=== PATIENT | female | born 1930 | race Caucasian/White ===

== ENCOUNTER 2018-07-01 05:47 | Day surgery (SDC) | payer MEDICARE, BC ==
[~2018-07-01 05:47] MED LIST: Lidocaine 1% 20 ML MDV INJECT ONE
[2018-07-01] MEDS ORDERED: Sodium Chloride 0.9% 1,000 ML IV SCH ×2 (06:30→08:00)
[2018-07-01] MEDS ORDERED: Metoprolol Succinate 50 MG Tab.ER PO ONE (06:58)
[2018-07-01] MEDS ORDERED: Lidocaine 1% 20 ML MDV INJECT ONE ×2 (07:00)
[2018-07-01] MEDS ORDERED: Zolpidem 5 MG Tab PO PRN (07:49)
[2018-07-01] MEDS ORDERED: hydrOXYzine HCl 100 MG/2 ML SDV IM PRN (07:49)
[2018-07-01] MEDS ORDERED: diphenhydrAMINE 50 MG/ML SDV IVPUSH PRN (07:49)
[2018-07-01] MEDS ORDERED: Benzocaine/Cetylpyridinium/Menthol Lozenge MUCMEM PRN (07:49)
[2018-07-01] MEDS ORDERED: Acetaminophen/HYDROcodone 325-10 MG Tab PO PRN (07:49)
[2018-07-01] MEDS ORDERED: Docusate Sodium 100 MG Cap PO PRN (07:49)
[2018-07-01] MEDS ORDERED: Bisacodyl 5 MG Tab PO PRN (07:49)
[2018-07-01] MEDS ORDERED: Ondansetron 4 MG/2 ML SDV IVPUSH PRN (07:49)
--- NOTE | 2018-07-01 08:39 | NM ---
RIGHT BREAST AND AXILLARY LYMPHOSCINTIGRAPHY Technique: 1.35 mCi of technetium 99m sulfur colloid were infused into the right periareolar subcuticular tissue. Sonographic images were obtained in the AP and lateral position. Findings: There is moderate uptake in the periareolar region. There is a small focus of activity in the right axilla consistent with a sentinel node. There is activity in the periumbilical region which is some focal contamination. Impression: Successful lymphoscintigraphy of the right breast and axilla with single sentinel node uptake in the axilla
[2018-07-01] MEDS ORDERED: Lidocaine 1% with EPINEPHrine 1:100,000 50 ML MDV ONE (08:43)
[2018-07-01] MEDS ORDERED: Bupivacaine 0.5% 50 ML MDV ONE (08:43)
--- NOTE | 2018-07-01 08:54 | US ---
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 The ultrasound localized the previously described lesion with the marker in place. Local anesthesia was applied to the skin and 16 is tissue towards the target lesion. A Kopan localization needle was passed through the described lesion. Acquire was then passed through the needle and needle was withdrawn leaving the require in place within the lesion. Patient was sent for two-view mammogram POST PROCEDURE TWO-VIEW MAMMOGRAM The Kopan localization wire was seen passing through the margin and just beyond the previously described the upper outer breast nodule with localization marker in place. IMPRESSION: Successful wire localization of the right breast nodule The patient was then sent to the OR in good condition
[2018-07-01] MEDS ORDERED: ceFAZolin 2 GM in Premix Bag 1 BAG IV ONE (09:30)
[2018-07-01] MEDS ORDERED: fentaNYL 100 MCG/2 ML SDV ONE (09:44)
[2018-07-01] MEDS ORDERED: Propofol 200 MG/20 ML SDV ONE (09:44)
[2018-07-01] MEDS ORDERED: Isosulfan Blue 5 ML SDV SUBCUT ONE (10:25)
[2018-07-01] MEDS ORDERED: Glycopyrrolate 0.2 MG/ML 5 ML MDV ONE (10:29)
--- NOTE | 2018-07-01 13:39 | MY ---
Surgical Specimen Breast CLINICAL HISTORY: Right breast nodule, lumpectomy FINDINGS: 2 views of the breast specimen were obtained. The the localization wire is in place. The the targeted right breast nodule is within the specimen centrally as well as a section of the localization wire and a biopsy marker Conclusion: Specimen contains the nodule of previous biopsy marker and the localization wire
--- NOTE | 2018-07-01 13:44 | PCM.CONS ---
H&P History of Present Illness - General Date of Service: 07/01/18 Admit Problem/Dx: Admission Diagnosis/Problem Admission Diagnosis/Problem Breast mass seen on mammogram Source of Information: Patient, Family, Provider, RN Notes Reviewed History Limitations: Reports: No Limitations - History of Present Illness Initial Comments - Free Text/Narative: Ms. Stovall is an 87-year-old woman who I been asked to see by Dr. Claros for assistance in management of hypertension. She underwent a right breast lumpectomy with lymph node dissection earlier today. She's been noted to have significant hypertension in the pre-and postoperative periods. Currently treated with metoprolol and lisinopril, in the is on a maximal dose of lisinopril. She otherwise feels well and tolerated the surgery without significant difficulty. - Related Data Allergies/Adverse Reactions: Allergies Allergy/AdvReac Type Severity Reaction Status Date / Time amlodipine Allergy Swelling Verified 06/24/18 10:21 oxybutynin [From Oxytrol] Allergy Headache Verified 06/24/18 10:21 pravastatin Allergy unknown Verified 06/24/18 10:21 sulfamethoxazole Allergy Hallucinati Verified 06/24/18 10:21 [From Bactrim] ons trimethoprim [From Bactrim] Allergy Hallucinati Verified 06/24/18 10:21 ons Home Medications: Home Meds Aspirin [Adult Low Dose Aspirin EC] 81 mg PO DAILY 01/31/13 [History] Furosemide [Lasix] 20 mg PO BID 01/31/13 [History] Gabapentin [Neurontin] 300 mg PO BID 01/31/13 [History] Metoprolol Succinate [Toprol Xl] 100 mg PO DAILY 01/31/13 [History] Rosuvastatin [Crestor] 10 mg PO DAILY 01/31/13 [History] metFORMIN HCl [Fortamet] 1,000 mg PO QPM 01/31/13 [History] Lisinopril 40 mg PO BID 06/26/14 [History] Gabapentin [Neurontin] 600 mg PO BEDTIME 02/14/18 [History] Insulin Detemir [Levemir Flextouch] 20 units SUBCUT DAILY 02/14/18 [History] Levothyroxine Sodium [Synthroid] 25 mcg PO DAILY 02/14/18 [History] metFORMIN [Glucophage] 500 mg PO QAM 02/14/18 [History] Ammonium Lactate [Lac-Hydrin 12% Crm] 1 gm TOP BID 06/24/18 [History] Coenzyme [id number] E [Co Q-10 with l-Carnitine Sftgl] 1 cap PO DAILY 06/24/18 [History] Past Medical History HEENT History: Reports: Cataract, Impaired Vision Other HEENT History: wears glasses Cardiovascular History: Reports: High Cholesterol, Hypertension, [place], Syncope Gastrointestinal History: Reports: None Genitourinary History: Reports: Urinary Incontinence Musculoskeletal History: Reports: Other (See Below) Other Musculoskeletal History: hip pain Neurological History: Reports: Neuropathy, Diabetic, Other (See Below) Other Neuro History: degenerative disc disease Endocrine/Metabolic History: Reports: Diabetes, Type II Oncologic (Cancer) History: Reports: Brain - Infectious Disease History Infectious Disease History: Reports: Chicken Pox, Influenza, Measles, Mumps, Rubella - Past Surgical History HEENT Surgical History: Reports: Adenoidectomy, Cataract Surgery, Tonsillectomy Cardiovascular Surgical History: Reports: None GI Surgical History: Reports: Appendectomy, Colonoscopy Female Surgical History: Reports: None Endocrine Surgical History: Reports: None Neurological Surgical History: Reports: None Musculoskeletal Surgical History: Reports: None, Hip Replacement Oncologic Surgical History: Reports: Biopsy of Breast Dermatological Surgical History: Reports: None Social & Family History - Family History Oncologic: Reports: Breast - Tobacco Use Smoking Status *Q: Never Smoker - Caffeine Use Caffeine Use: Reports: Coffee - Recreational Drug Use Recreational Drug Use: No H&P Review of Systems - Review of Systems: Review Of Systems: See Below Pulmonary: Reports: No Symptoms Cardiovascular: Reports: No Symptoms Gastrointestinal: Reports: No Symptoms Musculoskeletal: Reports: No Symptoms Exam - Exam Exam: See Below - Vital Signs Vital Signs: Last Vital Signs Temp 97.3 F 07/01/18 12:15 Pulse 47 L 07/01/18 12:30 Resp 18 07/01/18 12:30 BP 195/54 H 07/01/18 12:30 Pulse Ox 100 07/01/18 12:30 Weight: 137 lb - Exam Quality Assessment: DVT Prophylaxis General: Alert, Oriented, Cooperative, Mild Distress Neck: Supple, Trachea Midline, +2 Carotid Pulse wo Bruit Lungs: Clear to Auscultation, Normal Respiratory Effort Cardiovascular: Regular Rate, Regular Rhythm, Normal S1, Normal S2. No: Systolic Murmur, Diastolic Murmur GI/Abdominal Exam: Soft, Non-Tender, No Organomegaly, No Distention Extremities: Non-Tender, No Pedal Edema - Patient Data Lab Results Last 24 hrs: Laboratory Results - last 24 hr 07/01/18 Range/Units 06:30 Blood Type O POSITIVE Gel Antibody Screen Negative Consult PN Assessment/Plan Procedures: Procedures ASSAY OF TROPONIN QUANT (02/14/18) BREAST TOMOSYNTHESIS BI (06/11/18) BX BREAST 1ST LESION US IMAG (06/24/18) COMP SCREEN MAMMOGRAM ADD-ON (08/10/14) COMPLETE CBC W/AUTO DIFF WBC (02/14/18) COMPREHEN METABOLIC PANEL (02/14/18) CULTURE AEROBIC IDENTIFY (06/26/14) DX MAMMO INCL CAD UNI (06/24/18) ELECTROCARDIOGRAM TRACING (02/14/18) EMERGENCY DEPT VISIT (02/14/18) EMERGENCY DEPT VISIT (06/26/14) EMERGENCY DEPT VISIT (01/31/13) HOT OR COLD PACKS THERAPY (03/02/16) MANUAL THERAPY 1/> REGIONS (03/02/16) METABOLIC PANEL TOTAL CA (01/31/13) MICROBE SUSCEPTIBLE GISSEL (02/14/18) PT EVALUATION (03/02/16) ROUTINE VENIPUNCTURE (02/14/18) SCR MAMMO BI INCL CAD (06/11/18) THER/PROPH/DIAG INJ SC/IM (01/31/13) THER/PROPH/DIAG IV INF INIT (02/14/18) THERAPEUTIC EXERCISES (03/02/16) TTE W/DOPPLER COMPLETE (06/17/18) ULTRASOUND BREAST COMPLETE (06/17/18) ULTRASOUND BREAST LIMITED (06/13/17) URINALYSIS AUTO W/SCOPE (02/14/18) URINE BACTERIA CULTURE (02/14/18) URINE CULTURE/COLONY COUNT (02/14/18) X-RAY EXAM CHEST 1 VIEW (02/14/18) X-RAY EXAM HIPS BI 3-4 VIEWS (07/03/16) Problem List Initiated/Reviewed/Updated: Yes Plan: ASSESSMENT AND RECOMMENDATIONS STATUS POST RIGHT BREAST LUMPECTOMY AND LYMPH NODE DISSECTION-doing well during the initial postoperative period -Postoperative care per Dr. Claros HYPERTENSION-blood pressure elevated, she is on a maximal dose of lisinopril. Further increase in metoprolol dose limited by bradycardia -Hydralazine 10 mg by mouth every 6 hours Requesting Provider: RW Date Consult Requested: 07/01/18 Reason for Consult: Hypertension Patient History Reviewed: Yes Notified Requestor: Yes
[2018-07-01] MEDS: hydrALAZINE 10 MG Tab PO SCH ×2 (14:19→20:22)
[2018-07-01] MEDS ORDERED: Gabapentin 300 MG Cap (PTOM) PO SCH (21:00)
[2018-07-01] MEDS ORDERED: metFORMIN 500 MG Tab PO SCH (21:20)
--- NOTE | 2018-07-01 21:29 | OR ---
DATE OF PROCEDURE: 07/01/2018 PROCEDURE: 1. Excision of right breast carcinoma. 2. Excision of axillary nodes, right, multiple. COMPLICATIONS: None. TELEVISION ENGINEER: None. ANESTHESIA: MAC/local. RISKS: Risks, benefits, alternatives, and limitations, including, but not limited to infection, bleeding, false-positives and false-negatives requirement for reoperation were explained to the patient and family. I also explained nerve injury in the axilla. The role of axillary dissection involved radiation and chemotherapy, wound problems, and other risks not listed here. We also discussed chronic lymphedema. PROCEDURE IN DETAIL: The patient was placed in supine position. The right breast mass was identified first. 11 megahertz ultrasound was used to follow the lesion down the wire. This was accessed by using an approximately 6 cm incision over the tail of Hack[place]. The lesion was eventually circumnavigated using electrocautery. Prior to its removal, a single stitch was placed superior, double stitch lateral and a silk stitch placed anteriorly. This was removed from the body and sent to pathology and this will be later inspected for evidence of bleeding which none was noted. Of note, the wound was not closed after the axillary lymph nodes where we harvested. These nodes were harvested through the same incision. This was performed by using the Neoprobe. Approximately, the [employer] counter was reading approximately 800 when the nodes were identified. These nodes were in a large cluster were clipped and Ex Vivo was noted to be approximately 800. Background after removal of the nodes was less than 10%. The wound was then closed with 3-0 Vicryl and 4-0 Vicryl on the right with a 10 flat Arthur- Tejeda drain after the skin closure. The patient tolerated the procedure well. Dionte Claros MD /[id number]
[2018-07-01] MEDS ORDERED: Lisinopril 20 MG Tab PO SCH (21:30)
[2018-07-01] MEDS: Acetaminophen 325 MG Tab PO PRN (23:01)
[2018-07-02] MEDS: hydrALAZINE 10 MG Tab PO SCH ×2 (02:36→08:30)
[2018-07-02] MEDS ORDERED: LEVOTHYROXINE 25 MCG PO SCH (07:30)
[2018-07-02] MEDS ORDERED: Furosemide 20 MG (PTOM) PO SCH (08:00)
[2018-07-02] MEDS ORDERED: METFORMIN 1000 MG PO SCH ×2 (08:00→17:00)
[2018-07-02] MEDS ORDERED: LEVEMIR SUBCUT SCH (09:00)
[2018-07-02] MEDS ORDERED: Gabapentin 300 MG Cap (PTOM) PO SCH (09:00)
[2018-07-02] MEDS ORDERED: ROSUVASTATIN 10 MG PO SCH (09:00)
[2018-07-02] MEDS ORDERED: Metoprolol Succinate 50 MG Tab.ER PO SCH (09:00)
[2018-07-02] MEDS ORDERED: LISINOPRIL 40MG (PTOM) PO SCH (09:00)
[2018-07-02] MEDS ORDERED: METOPROLOL SUCCINATE 100 MG PO SCH (09:00)
[2018-07-02] MEDS: Acetaminophen 325 MG Tab PO PRN (10:49)
[2018-07-02 11:04] VITALS: BP 176/62
--- NOTE | 2018-07-02 12:12 | DISCH ---
DISCHARGE DIAGNOSES: Status post right lumpectomy and sentinel node removal. SUMMARY OF HOSPITAL COURSE: A pleasant 87-year-old female who underwent uneventful resection as described above. On postop day 1, her pain is well controlled. She had no nausea, vomiting, shortness of breath, or chest pain. No signs or concerns with respect to infection or bleeding. Drain output was minimal. The labs were stable. FOLLOWUP: With Surgery in 7 to 14 days. ACTIVITY: No lifting greater than 30 pounds for 30 days. MEDICATIONS: Please see MAR, but include Eola for pain.
--- NOTE | 2018-07-02 12:15 | PN ---
DATE OF SERVICE: 07/02/2018 SUBJECTIVE: Patient is doing very well today. Pain is well controlled. No nausea, vomiting, shortness of breath, or chest pain. OBJECTIVE: VITAL SIGNS: Vital signs are stable. CARDIOVASCULAR: Regular rhythm and rate. RESPIRATORY: Lungs are clear to auscultation bilaterally. ABDOMEN: Bowel sounds are positive. Dressings are intact. ASSESSMENT AND PLAN: Status post right lumpectomy and sentinel node excision. PLAN: The patient will be discharged today. Please see discharge summary for further details. Dionte Claros MD /[id number]
--- NOTE | 2018-07-02 13:54 | OR ---
DATE OF PROCEDURE: 07/01/2018 PROCEDURE: 1. Injection of technetium-99m for sentinel node identification purpose (95772). 2. Injection of Lymphazurin blue for sentinel node identification purposes ([id number]). COMPLICATIONS: None. SURGEON: Dionte Claros MD CITY BAILIFF: None. PREOPERATIVE DIAGNOSES: A pleasant 87-year-old female with right breast carcinoma, requiring resection and sentinel node identification. POSTOPERATIVE DIAGNOSES: A pleasant 87-year-old female with right breast carcinoma, requiring resection and sentinel node identification. RISKS: All risks, benefits, alternatives, and limitations including, but not limited to, infection, bleeding, and allergic reaction were explained to the patient, who wished to proceed. PROCEDURE DETAILS: In the nuclear medicine department, the right breast was readily identified and the periareolar area was prepped and draped. Three aliquots of technetium-99m were injected in a periareolar fashion subdermally and subcutaneously without difficulty. The Lymphazurin blue had also been injected in the same manner using prepping, draping, and a total of 3 mL in 4 different locations around the areolar complex. The patient tolerated the procedure well. Dionte Claros MD /[id number]
== END 2018-07-02 12:43 | disposition home or self-care (01) ==
LOC: JP.SDS 05:47 → JP.MS 07:49 → UNDOADMOB 07:49 → JP.SDS 07-02 12:43 → UNDODISOB 07-02 12:43
PROVIDERS: ATTEND Surgery
DX: C50.411 Malignant neoplasm of upper-outer quadrant of right female breast (principal); Z17.0 Estrogen receptor positive status [ER+]; I10 Essential (primary) hypertension; E11.42 Type 2 diabetes mellitus with diabetic polyneuropathy; E78.00 Pure hypercholesterolemia, unspecified; E02 Subclinical iodine-deficiency hypothyroidism; Z79.4 Long term (current) use of insulin; Z79.82 Long term (current) use of aspirin; Z79.899 Other long term (current) drug therapy; Z88.8 Allergy status to other drugs, medicaments and biological substances; Z88.2 Allergy status to sulfonamides; Z88.1 Allergy status to other antibiotic agents
CPT/HCPCS: 19285; 19301; 36415; 38525; 38790; 76098; 77065; 78195; 80048; 82962; 85025; 86850; 86900; 86901; 88307; 88342; 97161; A9270; A9541; J0690; J2001; J2704; J3010; J3490; J7030; Q9968

== ENCOUNTER 2018-07-03 11:38 | Emergency (ER) | payer MEDICARE, BC ==
[2018-07-03 13:36] VITALS: BP 196/47
--- NOTE | 2018-07-03 14:49 | EDM.PDOC ---
ED HPI GENERAL MEDICAL PROBLEM - General Chief Complaint: Cardiovascular Problem Stated Complaint: DIZZY AND LIGHT HEADED Time Seen by Provider: 07/03/18 12:28 Source of Information: Reports: Patient History Limitations: Reports: No Limitations - History of Present Illness INITIAL COMMENTS - FREE TEXT/NARRATIVE: This lady comes in for dizziness and light headedness. She was told her blood pressure was low. She said today she was just a little dizzy and weak felt a little bit unstable. She was discharged from the hospital yesterday after what sounds like a breast lumpectomy 2 days ago. She's not having much pain. She has a Arthur-Tejeda drain inserted. She denies nausea vomiting diarrhea. There is no chest pain palpitations or shortness of breath. She took all of her morning medications including Toprol 100 mg. Left Breast Pain Score (Numeric/FACES): 7 - Related Data Allergies Allergy/AdvReac Type Severity Reaction Status Date / Time amlodipine Allergy Swelling Verified 07/03/18 11:56 oxybutynin [From Oxytrol] Allergy Headache Verified 07/03/18 11:56 pravastatin Allergy unknown Verified 07/03/18 11:56 sulfamethoxazole Allergy Hallucinati Verified 07/03/18 11:56 [From Bactrim] ons trimethoprim [From Bactrim] Allergy Hallucinati Verified 07/03/18 11:56 ons Home Meds: Home Meds Aspirin [Adult Low Dose Aspirin EC] 81 mg PO DAILY 01/31/13 [History] Furosemide [Lasix] 20 mg PO BID 01/31/13 [History] Gabapentin [Neurontin] 300 mg PO BID 01/31/13 [History] Metoprolol Succinate [Toprol Xl] 100 mg PO DAILY 01/31/13 [History] Rosuvastatin [Crestor] 10 mg PO DAILY 01/31/13 [History] metFORMIN HCl [Fortamet] 1,000 mg PO QPM 01/31/13 [History] Lisinopril 40 mg PO BID 06/26/14 [History] Gabapentin [Neurontin] 600 mg PO BEDTIME 02/14/18 [History] Insulin Detemir [Levemir Flextouch] 20 units SUBCUT DAILY 02/14/18 [History] Levothyroxine Sodium [Synthroid] 25 mcg PO DAILY 02/14/18 [History] metFORMIN [Glucophage] 500 mg PO QAM 02/14/18 [History] Ammonium Lactate [Lac-Hydrin 12% Crm] 1 gm TOP BID 06/24/18 [History] Coenzyme [id number] E [Co Q-10 with l-Carnitine Sftgl] 1 cap PO DAILY 06/24/18 [History] hydrALAZINE [Apresoline] 10 mg PO Q6H #120 tablet 07/02/18 [Rx] Past Medical History HEENT History: Reports: Cataract, Impaired Vision Other HEENT History: wears glasses Cardiovascular History: Reports: High Cholesterol, Hypertension, [place], Syncope Gastrointestinal History: Reports: None Genitourinary History: Reports: Urinary Incontinence 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: Musculoskeletal History: Reports: Other (See Below) Other Musculoskeletal History: hip pain Neurological History: Reports: Neuropathy, Diabetic, Other (See Below) Other Neuro History: degenerative disc disease Endocrine/Metabolic History: Reports: Diabetes, Type II, Hypothyroidism Oncologic (Cancer) History: Reports: Brain, Breast - Infectious Disease History Infectious Disease History: Reports: Chicken Pox, Influenza, Measles, Mumps, Rubella - Past Surgical History Head Surgeries/Procedures: Reports: None HEENT Surgical History: Reports: Adenoidectomy, Cataract Surgery, Tonsillectomy Cardiovascular Surgical History: Reports: None GI Surgical History: Reports: Appendectomy, Colonoscopy Female Surgical History: Reports: Other (See Below) Other Female Surgeries/Procedures: lumpectomy Endocrine Surgical History: Reports: None Neurological Surgical History: Reports: None Musculoskeletal Surgical History: Reports: None, Hip Replacement Oncologic Surgical History: Reports: Biopsy of Breast Dermatological Surgical History: Reports: None Social & Family History - Family History Oncologic: Reports: Breast - Tobacco Use Smoking Status *Q: Never Smoker Second Hand Smoke Exposure: No - Caffeine Use Caffeine Use: Reports: Coffee - Recreational Drug Use Recreational Drug Use: No ED ROS GENERAL - Review of Systems Review Of Systems: See Below Constitutional: Reports: Weakness HEENT: Reports: No Symptoms Respiratory: Reports: No Symptoms Cardiovascular: Reports: No Symptoms Endocrine: Reports: No Symptoms GI/Abdominal: Reports: No Symptoms : Reports: No Symptoms Musculoskeletal: Reports: No Symptoms Skin: Reports: No Symptoms Neurological: Reports: Dizziness ED EXAM, GENERAL - Physical Exam Exam: See Below Exam Limited By: No Limitations General Appearance: Alert, WD/WN, No Apparent Distress Eye Exam: Bilateral Eye: Normal Inspection Throat/Mouth: Normal Inspection Head: Atraumatic Neck: Normal Inspection Respiratory/Chest: Lungs Clear, Other (She has bandages over the left breast and there is a Arthur-Tejeda drain draining pink colored fluid. Bandages were not removed from the right breast.) Cardiovascular: Normal Peripheral Pulses, Regular Rate, Rhythm Peripheral Pulses: 2+: Radial (L), Radial (R) GI/Abdominal: Soft, Non-Tender Back Exam: Normal Inspection Extremities: Normal Inspection Neurological: Alert, Oriented, Normal Cognition Psychiatric: Normal Affect Skin Exam: Warm, Dry Course - Vital Signs Last Recorded V/S: Last Vital Signs Temp 35.9 C 07/03/18 12:00 Pulse 45 L 07/03/18 13:35 Resp 20 07/03/18 13:35 BP 196/47 H 07/03/18 13:35 Pulse Ox 97 07/03/18 13:35 Orthostatic Blood Pressure [ 192/47 Standing] Orthostatic Blood Pressure [ 196/47 Supine] - Orders/Labs/Meds Orders: Active Orders 24 hr Category Date Time Status EKG Documentation Completion [RC] ASDIRECTED Care 07/03/18 12:59 Active CULTURE URINE [RM] Stat Lab 07/03/18 14:53 Ordered EKG 12 Lead [EK] Urgent Ther 07/03/18 12:58 Ordered Labs: Laboratory Tests 07/03/18 07/03/18 07/03/18 Range/Units 13:14 13:14 13:22 WBC 7.5 (4.5-11.0) K/uL RBC 3.47 (3.30-5.50) M/uL Hgb 11.3 L (12.0-15.0) g/dL Hct 33.3 L (36.0-48.0) % MCV 96 (80-98) fL MCH 33 H (27-31) pg MCHC 34 (32-36) % Plt Count 175 (150-400) K/uL Neut % (Auto) 78 H (36-66) % Lymph % (Auto) 11 L (24-44) % [place] % (Auto) 7 H (2-6) % Eos % (Auto) 4 (2-4) % Baso % (Auto) 0 (0-1) % Sodium 137 L (140-148) mmol/L Potassium 4.3 (3.6-5.2) mmol/L Chloride 103 (100-108) mmol/L Carbon Dioxide 24 (21-32) mmol/L Anion Gap 14.3 H (5.0-14.0) mmol/L BUN 28 H D (7-18) mg/dL Creatinine 1.0 (0.6-1.0) mg/dL Est Cr Clr Drug Dosing 31.55 mL/min Estimated GFR (MDRD) 52 L (>60) Glucose 175 H (74-106) mg/dL Calcium 8.8 (8.5-10.1) mg/dL Total Bilirubin 0.6 (0.2-1.0) mg/dL AST 21 (15-37) U/L ALT 15 (12-78) U/L Alkaline Phosphatase 67 (46-116) U/L Total Protein 6.4 (6.4-8.2) g/dL Albumin 3.3 L (3.4-5.0) g/dL Globulin 3.1 (2.3-3.5) g/dL Albumin/Globulin Ratio 1.1 L (1.2-2.2) Urine Color Yellow Urine Appearance Slightly cloudy Urine pH 5.0 (4.5-8.0) Ur Specific [place] 1.015 (1.008-1.030) Urine Protein Trace (NEGATIVE) mg/dL Urine Glucose (UA) Normal (NEGATIVE) mg/dL Urine Ketones Negative (NEGATIVE) mg/dL Urine Occult Blood Trace (NEGATIVE) Urine Nitrite Negative (NEGATIVE) Urine Bilirubin Negative (NEGATIVE) Urine Urobilinogen Normal (NORMAL) mg/dL Ur Leukocyte Esterase Moderate (NEGATIVE) Urine RBC 5-10 H (0-5) Urine WBC 5-10 H (0-5) Ur Epithelial Cells Few Amorphous Sediment Not seen Urine Bacteria Few Urine Mucus Not seen - Re-Assessments/Exams Free Text/Narrative Re-Assessment/Exam: 07/03/18 14:55 Urine culture was sent. This lady has no symptoms of a UTI most likely there is a little bit of contamination of the urine. Orthostatics were negative on this lady and the nurse got her up in the walked her around the ER a few times and she felt great. Departure - Departure Time of Disposition: 14:47 Disposition: Home, Self-Care 01 Condition: Fair Clinical Impression: Bradycardia, Dizziness Instructions: Bradycardia, Adult, Dizziness, [id number] Referrals: Aiden Quintero PA [Primary Care Provider] - Forms: ED Department Discharge Additional Instructions: Decrease metoprolol XL to 50 mg each morning. This will allow your heart to beat faster area You may be slightly dehydrated so it would help to increase your intake of liquids a little bit for the next 24 hours. You should see your Dr. within the next several days for a recheck - My Orders Last 24 Hours: My Active Orders 07/03/18 12:58 EKG 12 Lead [EK] Urgent 07/03/18 12:59 EKG Documentation Completion [RC] ASDIRECTED 07/03/18 14:53 CULTURE URINE [RM] Stat - Assessment/Plan Last 24 Hours: My Active Orders 07/03/18 12:58 EKG 12 Lead [EK] Urgent 07/03/18 12:59 EKG Documentation Completion [RC] ASDIRECTED 07/03/18 14:53 CULTURE URINE [RM] Stat
== END 2018-07-03 15:00 | disposition home or self-care (01) ==
LOC: JP.ED 11:38
DX: R42 Dizziness and giddiness (principal); R00.1 Bradycardia, unspecified; E78.00 Pure hypercholesterolemia, unspecified; I10 Essential (primary) hypertension; I25.2 Old myocardial infarction; E03.9 Hypothyroidism, unspecified; E11.9 Type 2 diabetes mellitus without complications; Z88.8 Allergy status to other drugs, medicaments and biological substances; Z88.2 Allergy status to sulfonamides; Z79.82 Long term (current) use of aspirin; Z79.4 Long term (current) use of insulin
CPT/HCPCS: 36415; 80053; 81001; 85025; 87086; 93005; 99284-25